=== PATIENT | male | born 1960 | race Caucasian/White ===

== ENCOUNTER 2022-06-28 18:25 | Emergency (ER) | payer MEDICAID ==
[~2022-06-28] VITALS: Ht 172.7 cm; Wt 83.9 kg
[2022-06-28 18:53] VITALS: BP 103/68
--- NOTE | 2022-06-28 18:57 | NUR ---
61 [facility] mechanical fall 3 hours ago before dialysis treatment. Pt A&Ox4, non-ambulatory (R BKA), states 11/30 R arm pain s/p fall. Per EMS, patient experienced a fall while being transported to dialysis center; pt notified staff of fall after dialsysis treatment. Tu/Tr/Sat; dialysis port left upper arm. Completed dialysis tx today. A&Ox4, forgetful, blind - baseline. EMS BS 181. VSS. PMH: HTN, ESRD, DM2, NSTEMI w/ stent placement 04/2022, anemia, PAD, R below knee amputation Meds: insulin glargine, plavix, lantanoprost, pantoprazole, norco, zofran NKDA
--- NOTE | 2022-06-28 19:11 | NUR ---
[facility] BLS TO ER BED 13
--- NOTE | 2022-06-28 22:00 | NUR ---
61 y/o M BIBA from [facility] kidney [facility] c/o mechanical fall after dialysis. Pt states 11/30 R arm pain s/p fall. /Tr/Sat; completed dialysis tx today. A&Ox4, forgetful, blind - baseline. EMS BS 181. PMH: HTN, ESRD, DM2, NSTEMI w/ stent placement 04/2022, anemia, PAD, R below knee amputation Meds: insulin glargine, plavix, lantanoprost, pantoprazole, norco, zofran NKDA
--- NOTE | 2022-06-28 22:57 | NUR ---
Sandy mead in [facility] - 06/28/[address] at [address] Ferrer examining patient.
--- NOTE | 2022-06-28 22:57 | NUR ---
LUDY BLANCAS ASSESSING PT.
[2022-06-28] MEDS ORDERED: ACETAMINOPHEN EXTRA STRENGTH 500 MG TAB PO ONE (23:05)
--- NOTE | 2022-06-28 23:15 | NUR ---
TO CT VIA [facility]
[2022-06-29] MEDS ORDERED: ACET-10509 PO (00:25)
--- NOTE | 2022-06-29 00:40 | NUR ---
CALLED FACILITY, STATES THEY ARE UNABLE TO SET UP TRANSPORT TO GET PT BACK.
--- NOTE | 2022-06-29 01:19 | NUR ---
Patient appears to be resting comfortably in bed. Vital Signs within normal limits. Respirations even and unlabored.
--- NOTE | 2022-06-29 03:12 | NUR ---
Patient appears to be resting comfortably in bed. Vital Signs within normal limits. Respirations even and unlabored.
--- NOTE | 2022-06-29 04:38 | NUR ---
Changed diapers and cleaned patient.
--- NOTE | 2022-06-29 05:53 | NUR ---
Patient appears to be resting comfortably in bed. Vital Signs within normal limits. Respirations even and unlabored.
--- NOTE | 2022-06-29 07:15 | NUR ---
RECEIVED REPORTED FROM EVE TANG.
[2022-06-29 10:15] VITALS: BP 130/57
--- NOTE | 2022-06-29 10:17 | NUR ---
Patient discharged with v/s stable. Written and verbal after care instructions given and explained. Patient alert, oriented and verbalized understanding of instructions. [facility] with to [facility]. All questions addressed prior to discharge. ID band removed. Patient advised to follow up with PMD. Rx of TYLENOL given. Patient educated on indication of medication including possible reaction and side effects. Opportunity to ask questions provided and answered.
--- NOTE | 2022-06-29 10:24 | NUR ---
CALLED AGAIN TO GIVE REPORT N/A, SPOKE TO PT SISTER SHE STS " THEY NEVER ACIDIZER THE PHONE, I WAIT ON HOLD ALL THE TIME."
== END 2022-06-29 10:17 ==
LOC: MED 18:25
DX: S39.012A Strain of muscle, fascia and tendon of lower back, initial encounter (principal); S00.03XA Contusion of scalp, initial encounter; E11.22 Type 2 diabetes mellitus with diabetic chronic kidney disease; I12.0 Hypertensive chronic kidney disease with stage 5 chronic kidney disease or end stage renal disease; N18.6 End stage renal disease; Z99.2 Dependence on renal dialysis; I21.4 Non-ST elevation (NSTEMI) myocardial infarction; K21.9 Gastro-esophageal reflux disease without esophagitis; Z95.5 Presence of coronary angioplasty implant and graft; Z98.890 Other specified postprocedural states; Z79.899 Other long term (current) drug therapy; W18.39XA Other fall on same level, initial encounter; Y92.89 Other specified places as the place of occurrence of the external cause; Y93.89 Activity, other specified; Y99.8 Other external cause status
CPT/HCPCS: 70450; 72131; 82948; 99284